=== PATIENT | male | born 1970 | race Caucasian/White ===

== ENCOUNTER 2021-10-09 18:15 | Emergency (ER) | payer MEDICAID, SELFPAY ==
[2021-10-09 18:19] VITALS: BP 155/88; PULSE 80; RESP 18; TEMP 36.1; O2SAT 97; BMI 29.0
--- NOTE | 2021-10-09 20:28 | ED_ITS ---
HPI - General Adult General Chief complaint: General Medical Stated complaint: Neck Eye Pain Ringing In Ears Time Seen by Provider: 10/09/21 20:18 Source: patient Mode of arrival: ambulatory Limitations: no limitations History of Present Illness MD complaint: ringing in ears, bumps on neck Onset (ago): week(s) (2 but bumps on neck 6+ months) Location: head and neck Radiation: non-radiation Severity: mild Quality: aching Pain Consistency: constant Relieving factors: none Exacerbating factors: none Associated symptoms: denies other symptoms Treatments prior to arrival: none Related Data Previous Rx's Medication Instructions Recorded vvbbfojq-[id number]-uutoqndyr 3.5 4 drp OTIC (EARS) TID 7 Days #10 ml 10/09/21 mg-10,000 unit/mL-1 % ear drops,susp Allergies Allergy/AdvReac Type Severity Reaction Status Date / Time aspirin [ASPIRIN] Allergy Unknown UNKNOWN Unverified 08/12/20 17:33 aspirin Allergy Unknown Uncoded 08/14/19 00:00 Review of Systems Review of Systems: Constitutional : No Fever, No Chills ENT/Mouth : No sore throat, No Rhinorrhea Eyes: No Eye Pain, pos eye itching, pos hearing loss, pos ringing in ears Cardiovascular : No Chest Pain, No SOB Respiratory : No Cough, No Sputum, No Wheezing Gastrointestinal : No Nausea, No Vomiting Genitourinary : No Dysuria, No Urinary Frequency, No Hematuria, Musculoskeletal : No joint pain, No Myalgias, No Joint Swelling Skin : pos Skin Lesions, No rash Neuro : No Weakness, No Numbness, No Dizziness, No Headache Psych : No Anxiety/Panic, No Depression All other systems reviewed and are negative [facility] Past Medical History Attestation statement: The following information was validated with the patient. Medical History No known health problems Social History Social History (Updated 10/09/21 @ 21:06 by Aga Clemente DO) Patient Tobacco Use Status: Tobacco use Unknown Advance Directives: No Physical Exam Vital Signs: Vital Signs: Last Vital Signs Temp 97 F 10/09/21 18:19 Pulse 80 10/09/21 18:19 Resp 18 10/09/21 18:19 BP 155/88 H 10/09/21 18:19 Pulse Ox 97 10/09/21 18:19 Body Mass Index 29.0 Appearance: Alert. Oriented X3. No acute distress. Eyes: Pupils equal, round and reactive to light. ENT: Pharynx normal. bilateral dark cerumen impaction Neck: Normal inspection. L posterior occiput soft mobile lipoma, R neck soft mobile area no overlying cellulitis - no drainage - no sigs of cellulitis CVS: Normal heart rate and rhythm. Pulses normal. Respiratory: No respiratory distress. Breath sounds normal. Abdomen: Soft and non-tender. Skin: Skin warm and dry. Normal skin color. Normal skin turgor. Extremities: No lower extremity edema. Neuro: Oriented X 3. No motor deficit. No sensory deficit. Procedures Ear Wax Removal Both Ears: Cerumenolytic Used: Colace Results: Re-examined: some cerumen remains TM Examination: TM(s) intact, normal appearance Ear Canal Exam: atraumatic Patient Tolerated Procedure: well and no complications Complications: pain Technique: ear canal irrigated and ear canal curetted Medical Decision Making [facility] Narrative Medical decision making narrative: 51 yo male with bilateral lipomas that show no signs of infection they do not appear to be abscess - soft and easily mobile. His ear pain and ringing in the ear is likely from bilateral cerumen impaction. Will refer to surgery for lipoma and will remove cerumen Discharge Plan Discharge Clinical Impression: Bilateral impacted cerumen Lipoma Qualifiers: Lipoma location: neck Qualified Code(s): D17.0 - Benign lipomatous neoplasm of skin and subcutaneous tissue of head, face and neck Patient Disposition: Home, Self-Care Instructions: Lipoma (ED) Additional Instructions: return to ED for any worsening symptoms or concerns there are drops over the counter called Debrox that can help with your ear wax issues [facility] [address] [facility] [phone] Prescriptions: New [id number]-umgrvpuos-RG 3.5-10,000-1 mg/mL-unit/mL-% drops,suspension 4 drp otic (ears) TID 7 Days Qty: 10 RF: 0 Referrals: Babatunde Watts MD [Physician] - 2 weeks
--- NOTE | 2021-10-09 20:32 | PC.NURSE ---
Provider at bed side for primary eval.
[2021-10-09] MEDS: Docusate Sodium 100 MG/10 ML LIQUID PO (21:03)
== END 2021-10-09 22:24 | disposition home or self-care (01) ==
PROVIDERS: Emergency Provider Emergency Medicine
DX: H61.23 Impacted cerumen, bilateral (principal); D17.0 Benign lipomatous neoplasm of skin and subcutaneous tissue of head, face and neck
CPT/HCPCS: 69210; 99283; 99284

== ENCOUNTER → 2021-11-16 15:33 | Outpatient (BNVA) | payer MEDICAID, SELFPAY | PROVIDERS: PCP Nurse Practitioner Family; Referring Provider Nurse Practitioner Family; Visit Provider Surgery | DX: D17.0 Benign lipomatous neoplasm of skin and subcutaneous tissue of head, face and neck (principal) | CPT/HCPCS: 99202 ==

== ENCOUNTER 2021-12-29 12:02 | Outpatient (REF) | payer MEDICAID, SELFPAY ==
[2021-12-29 12:57] VITALS: BP 140/100; PULSE 74; RESP 16; TEMP 36.1; O2SAT 96
[2021-12-29 12:58] VITALS: BMI 32.5
--- NOTE | 2021-12-29 13:36 | P.OP_ITS ---
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 He also had lipoma on the posterior neck which actually measured about 4 cm after being removed He understood the technique of excision of both lesions. He was aware of the risks, benefits, and alternatives He was brought to the minor procedure room and placed in supine position with the head turned to the left expose the right neck. The area of the cyst was prepped and draped. Lidocaine 1% was used for local anesthesia. I made incision in the skin overlying this cyst using blade 15. This was carried down through the full-thickness skin subcutaneous fat. I continued to sharply dissect with scissors until I visualized the cyst capsule. I sharply dissected the cyst capsule off of the rest of the subcutaneous layer circumferentially until this was delivered and sent as specimen. This was again consistent with an epidermal inclusion cyst, about 1.5 cm in diameter . I irrigated the area of excision. I closed the incision with full-thickness nylon 3-0 interrupted sutures. Dressings were applied The patient was then turned in prone position. The area of the lipoma was prepped and draped. Lidocaine 1% was used for local anesthesia. I made a transverse incision on the skin overlying the lipomatous mass using blade 15. This was carried down through the full-thickness of skin and subcutaneous layer. I continued to sharply dissect with Metzenbaum scissors until was able to visualize a lipoma. I sharply dissected the lipoma off of the rest of the surrounding subcutaneous layer all the way posteriorly. This was lobulated. The lipoma actually measured about 4 cm in widest diameter . I completely excise this. I irrigated the area of excision. Once hemostasis was confirmed, I closed the incision with full-thickness nylon 2-0 interrupted sutures. Dressings were applied. The procedure was completed. The patient tolerated procedure well. No complications were noted. Blood loss was about 30 cc. He was given wound care instructions. He will be seen in the office for follow- up for removal sutures.
== END 2021-12-29 12:03 | disposition home or self-care (01) ==
LOC: HO.MS 12:02
PROVIDERS: Visit Provider Surgery
PROC: (CPT 21552; principal; 2021-12-29 13:00)
DX: D17.0 Benign lipomatous neoplasm of skin and subcutaneous tissue of head, face and neck (principal); L72.0 Epidermal cyst
CPT/HCPCS: 21552; 11422; 88304

== ENCOUNTER → 2022-01-09 10:30 | Outpatient (BNVA) | payer MEDICAID, SELFPAY | PROVIDERS: Visit Provider Surgery | DX: Z48.817 Encounter for surgical aftercare following surgery on the skin and subcutaneous tissue (principal); Z87.2 Personal history of diseases of the skin and subcutaneous tissue | CPT/HCPCS: 99212 ==